=== PATIENT | male | born 1950 | race Caucasian/White ===

== ENCOUNTER 2016-06-23 10:36 | Outpatient (CLI) | payer OTHER ==
[2016-06-23 14:09] LABS: BASOPHILS % (AUTO) 0.7 % (0.0-3.0); EOSINOPHILS # (AUTO) 0.3 K/ul (0.0-0.7); EOSINOPHILS % (AUTO) 5.8 % (0.0-7.0); HEMATOCRIT 49.2 % (42.0-52.0); HEMOGLOBIN 15.5 g/dl (14.0-18.0); IMMATURE GRANULOCYTE % (AUTO) 0.4 % (0.0-5.0); LYMPHOCYTES # (AUTO) 1.6 K/uL (0.60-3.4); LYMPHOCYTES % (AUTO) 29.3 (10.0-50.0); MEAN CORPUSCULAR HGB CONC 31.5 (31.8-35.4); MEAN CORPUSCULAR VOLUME 82.6 fl (80.0-94.0); MONOCYTES # (AUTO) 0.5 K/uL (0.4-2.0); MONOCYTES % (AUTO) 9.1 (0-10); NEUTROPHILS # (AUTO) 2.9 K/ul (2.0-6.9); NEUTROPHILS % (AUTO) 54.7; PLATELET COUNT 151 10^3/uL (140-440); RED BLOOD COUNT 5.96 10^6/ul (4.70-6.10); WHITE BLOOD COUNT 5.36 K/ul (4.2-10.2)
[2016-06-23 14:17] LABS: BILIRUBIN,URINE Negative (NEGATIVE); KETONES,URINE Negative (NEGATIVE); LEUKOCYTE ESTERASE ,URINE Negative (NEGATIVE); NITRITE,URINE Negative (NEGATIVE); PROTEIN,URINE Negative (NEGATIVE); URINE, BLOOD Negative (NEGATIVE)
[2016-06-23 14:22] LABS: ADD URINE MICROSCOPIC NO
[2016-06-23 14:27] LABS: ALBUMIN 4.1 g/dL (3.4-5.0); ALBUMIN/GLOBULIN RATIO 1.24; ANION GAP 12.6; BILIRUBIN,TOTAL 0.72 mg/dL (0.00-1.20); BUN/CREATININE RATIO 13.86; CALCIUM 9.4 mg/dL (8.2-10.2); CHOL/HDL RATIO 4.5 (4.5-6.4); CREATININE 1.01 mg/dL (0.60-1.10); POTASSIUM 3.6 mmol/L (3.5-5.1); TOTAL PROTEIN 7.4 g/dL (5.8-8.1)
== END 2016-06-23 10:37 | disposition home or self-care (01) ==
LOC: LAB 10:36
PROVIDERS: ATTEND General Practice
DX: E61.1 Iron deficiency (principal); D75.1 Secondary polycythemia; I10 Essential (primary) hypertension; Z79.899 Other long term (current) drug therapy
CPT/HCPCS: 36415; 80053; 80061; 81001; 85025

== ENCOUNTER 2016-11-04 09:48 | Outpatient (CLI) | payer OTHER ==
[2016-11-04 12:45] LABS: BILIRUBIN,URINE Negative (NEGATIVE); KETONES,URINE Negative (NEGATIVE); LEUKOCYTE ESTERASE ,URINE Negative (NEGATIVE); NITRITE,URINE Negative (NEGATIVE); PROTEIN,URINE Negative (NEGATIVE); URINE, BLOOD Negative (NEGATIVE)
[2016-11-04 12:48] LABS: ADD URINE MICROSCOPIC NO
[2016-11-04 12:56] LABS: BASOPHILS % (AUTO) 0.4 % (0.0-3.0); EOSINOPHILS # (AUTO) 0.2 K/ul (0.0-0.7); EOSINOPHILS % (AUTO) 4.5 % (0.0-7.0); HEMATOCRIT 53.2 % (42.0-52.0); HEMOGLOBIN 16.9 g/dl (14.0-18.0); IMMATURE GRANULOCYTE % (AUTO) 0.2 % (0.0-5.0); LYMPHOCYTES # (AUTO) 1.4 K/uL (0.60-3.4); LYMPHOCYTES % (AUTO) 25.9 (10.0-50.0); MEAN CORPUSCULAR HGB CONC 31.8 (31.8-35.4); MONOCYTES # (AUTO) 0.5 K/uL (0.4-2.0); MONOCYTES % (AUTO) 9.7 (0-10); NEUTROPHILS # (AUTO) 3.2 K/ul (2.0-6.9); NEUTROPHILS % (AUTO) 59.3; PLATELET COUNT 144 10^3/uL (140-440); RED BLOOD COUNT 6.26 10^6/ul (4.70-6.10); WHITE BLOOD COUNT 5.37 K/ul (4.2-10.2)
[2016-11-04 13:30] LABS: ALBUMIN 4.2 g/dL (3.4-5.0); ALBUMIN/GLOBULIN RATIO 1.24; ANION GAP 13.5; BILIRUBIN,TOTAL 0.9 mg/dL (0.00-1.20); BUN/CREATININE RATIO 13.97; CALCIUM 9.5 mg/dL (8.2-10.2); CHOL/HDL RATIO 3.5 (4.5-6.4); CREATININE 0.93 mg/dL (0.60-1.10); POTASSIUM 3.5 mmol/L (3.5-5.1); TOTAL PROTEIN 7.6 g/dL (5.8-8.1)
== END 2016-11-04 09:49 | disposition home or self-care (01) ==
LOC: LAB 09:48
PROVIDERS: ATTEND General Practice
DX: I10 Essential (primary) hypertension (principal); G47.20 Circadian rhythm sleep disorder, unspecified type; D75.1 Secondary polycythemia; E61.1 Iron deficiency; Z79.899 Other long term (current) drug therapy
CPT/HCPCS: 36415; 80053; 80061; 81001; 85025

== ENCOUNTER 2017-02-21 13:08 | Outpatient (CLI) ==
--- NOTE | 2017-02-22 00:18 | MRI ---
EXAM: MRI left knee without contrast. HISTORY: Pain on left knee. Patient on knees laying floor approximate 5 weeks ago. [place] pop. Pain and swelling x 5 weeks. No left knee surgery reported.. TECHNIQUE: Using a local extremity coil on a high field strength magnet multiplanar multisequence MR I was performed of the left knee without intravenous or intra-articular gadolinium contrast. FINDINGS: I do not have prior radiographs of the left knee available for comparison at the time of t his dictation. Within the medial compartment there is truncation inner margin body medial meniscus compatible with t ear.. Meniscal flap tear component displaced along the inferior coronary recess/meniscotibial recess . This extends along the posterior horn body junction with undersurface tear extension along the inn er margin of the posterior horn itself. Chondrosis and cartilage attenuation over the weightbearing medial compartment. Diffuse confluent subchondral bone marrow edema/contusion medial tibial plateau most evident over the medial weightbearing rim with tiny subchondral fracture. Early productive oste ophyte formation. Within the lateral compartment lateral meniscus is intact without discrete surfacing meniscal tear. The lateral compartment cartilage congruent without underlying subchondral edema. Early productive o steophyte formation. Within the patellofemoral compartment the patella seated with intact patellar attachment of the media l and lateral patellar retinaculum. Patellar chondrosis/chondromalacia patella most evident extendin g from median ridge over the medial and odd facet with cartilage attenuation.. Generalized cartilage attenuation over the trochlear groove. Some chondrosis over the more superior central trochlear elizabeth ove. Productive osteophyte formation patellofemoral compartment. Small left knee effusion. No osteochondral loose bodies. Intact anterior and posterior cruciate liga ment fibers. Small synovial/ganglion cyst formation posteriorly at the joint line. The extensor mec hanism is intact. Patellar enthesopathy.. Patellar tendinosis. Distal quadriceps tendinosis The med ial collateral ligament as well as lateral collateral ligament complex and posterolateral corner inta ct.. IMPRESSION: Tear body and posterior horn medial meniscus as described. No discrete surfacing latera l meniscal tear identified. Associated diffuse confluent subchondral bone marrow edema/contusion medial tibial plateau most evide nt over the medial weightbearing rim with tiny subchondral fracture. Patellar chondrosis/chondromalacia patella. Tricompartmental productive osteophyte formation. Small left effusion. Small synovial/ganglion cyst formation posteriorly at the joint line. Intact cruciate and collateral ligaments. Patellar tendinosis. Distal quadriceps tendinosis.
== END 2017-02-21 13:09 | disposition home or self-care (01) ==
LOC: RAD 13:08
PROVIDERS: ATTEND Nurse Practitioner Family
DX: M25.562 Pain in left knee (principal); M25.462 Effusion, left knee

== ENCOUNTER 2017-03-03 13:54 | Outpatient (CLI) ==
[2017-03-03 14:19] LABS: BASOPHILS % (AUTO) 0.3 % (0.0-3.0); EOSINOPHILS # (AUTO) 0.3 K/ul (0.0-0.7); EOSINOPHILS % (AUTO) 4.7 % (0.0-7.0); HEMATOCRIT 53.8 % (42.0-52.0); HEMOGLOBIN 17.6 g/dl (14.0-18.0); IMMATURE GRANULOCYTE % (AUTO) 0.2 % (0.0-5.0); LYMPHOCYTES # (AUTO) 1.6 K/uL (0.60-3.4); LYMPHOCYTES % (AUTO) 24.9 (10.0-50.0); MEAN CORPUSCULAR HEMOGLOBIN 28.7 pg (27.0-31.0); MEAN CORPUSCULAR HGB CONC 32.7 (31.8-35.4); MEAN CORPUSCULAR VOLUME 87.6 fl (80.0-94.0); MONOCYTES # (AUTO) 0.6 K/uL (0.4-2.0); MONOCYTES % (AUTO) 8.8 (0-10); NEUTROPHILS # (AUTO) 3.8 K/ul (2.0-6.9); NEUTROPHILS % (AUTO) 61.1; PLATELET COUNT 145 10^3/uL (140-440); RED BLOOD COUNT 6.14 10^6/ul (4.70-6.10); WHITE BLOOD COUNT 6.22 K/ul (4.2-10.2)
[2017-03-03 14:21] LABS: BILIRUBIN,URINE Negative (NEGATIVE); KETONES,URINE Negative (NEGATIVE); LEUKOCYTE ESTERASE ,URINE Negative (NEGATIVE); NITRITE,URINE Negative (NEGATIVE); PH,URINE 6.5 (5-9); PROTEIN,URINE Negative (NEGATIVE); URINE, BLOOD Negative (NEGATIVE)
[2017-03-03 14:22] LABS: ADD URINE MICROSCOPIC NO
[2017-03-03 14:42] LABS: ALBUMIN/GLOBULIN RATIO 1.14; ANION GAP 12.1; BILIRUBIN,TOTAL 0.92 mg/dL (0.00-1.20); BUN/CREATININE RATIO 15.15; CALCIUM 9.9 mg/dL (8.2-10.2); CHOL/HDL RATIO 3.6 (4.5-6.4); CREATININE 0.99 mg/dL (0.60-1.10); POTASSIUM 4.1 mmol/L (3.5-5.1); TOTAL PROTEIN 7.5 g/dL (5.8-8.1)
== END 2017-03-03 13:55 | disposition home or self-care (01) ==
LOC: LAB 13:54
PROVIDERS: ATTEND General Practice
DX: E61.1 Iron deficiency (principal); I10 Essential (primary) hypertension; Z79.899 Other long term (current) drug therapy
CPT/HCPCS: 36415; 80053; 80061; 81001; 85025

== ENCOUNTER 2017-03-28 15:08 | Outpatient (CLI) | payer OTHER | END 2017-03-28 15:09 | disposition home or self-care (01) | LOC: CAR 15:08 | PROVIDERS: ATTEND General Practice | DX: I49.3 Ventricular premature depolarization (principal) | CPT/HCPCS: 93005; 93010 ==

== ENCOUNTER 2017-11-13 10:11 | Outpatient (CLI) | END 2017-11-13 10:12 | disposition home or self-care (01) | LOC: FCC-LAB 10:11 | PROVIDERS: ATTEND General Practice | DX: E61.1 Iron deficiency (principal); I10 Essential (primary) hypertension; G47.20 Circadian rhythm sleep disorder, unspecified type; D75.1 Secondary polycythemia; Z79.899 Other long term (current) drug therapy; Z12.5 Encounter for screening for malignant neoplasm of prostate | CPT/HCPCS: 36415; 80053; 80061; 81001; 85025 ==

== ENCOUNTER 2018-04-02 14:51 | Outpatient (CLI) | END 2018-04-02 14:52 | disposition home or self-care (01) | LOC: RHC-LAB 14:51 | PROVIDERS: ATTEND General Practice | DX: G47.20 Circadian rhythm sleep disorder, unspecified type (principal); D75.1 Secondary polycythemia; I10 Essential (primary) hypertension; E61.1 Iron deficiency; Z79.899 Other long term (current) drug therapy | CPT/HCPCS: 36415; 80053; 80061; 81001; 85025 ==

== ENCOUNTER 2018-04-09 10:44 | Outpatient (CLI) | payer OTHER | END 2018-04-09 10:45 | disposition home or self-care (01) | LOC: RHC-LAB 10:44 | PROVIDERS: ATTEND General Practice | DX: G47.20 Circadian rhythm sleep disorder, unspecified type (principal); D75.1 Secondary polycythemia; I10 Essential (primary) hypertension; E61.1 Iron deficiency; Z79.899 Other long term (current) drug therapy | CPT/HCPCS: 82272 ==

== ENCOUNTER 2018-08-17 08:03 | Outpatient (CLI) | payer OTHER | END 2018-08-17 08:04 | disposition home or self-care (01) | LOC: RHC-LAB 08:03 | PROVIDERS: ATTEND General Practice | DX: D75.1 Secondary polycythemia (principal); I10 Essential (primary) hypertension; Z79.899 Other long term (current) drug therapy | CPT/HCPCS: 36415; 80053; 80061; 81001; 85025 ==